=== PATIENT | female | born 1995 | race Caucasian/White ===

== ENCOUNTER 2017-02-18 19:23 | Emergency (ER) | payer SELFPAY ==
[~2017-02-18] VITALS: Ht 175.3 cm; Wt 86.4 kg
[~2017-02-18 19:23] MED LIST: NORCO 325 MG-51 TAB PO; TYLENOL 325MG325 MG PO
[2017-02-18 19:30] VITALS: BP 150/56; PULSE 102; TEMP 98.7
== END 2017-02-18 21:44 | disposition home or self-care (01) ==
LOC: COL.ER 19:23
DX: M79.672 Pain in left foot (principal); Z87.81 Personal history of (healed) traumatic fracture